=== PATIENT | female | born 1980 | race Caucasian/White ===

== ENCOUNTER 2017-01-25 04:47 | Emergency (ER) | payer OTHER ==
[~2017-01-25] VITALS: Ht 160 cm; Wt 52.3 kg
[2017-01-25 04:55] VITALS: BP 121/81; PULSE 97; RESP 16; O2SAT 100
--- NOTE | 2017-01-25 04:56 | ED.REPORT ---
HPI-General Illness Date of Service Jan 25, 2017 ED Provider: Hardik Ureña MD Patient is a 36 year old female with a history of PVC's and anxiety who presents to the ED complaining of palpitations at 2100. About an hour later she began shaking and states that she felt like her "electrolytes were off". Associated symptoms include being extremely thirsty, urinary frequency and fatigue. She states that her natural path recently "diagnosed her with [place] virus but she was told that she does not have mononucleosis as she is afebrile and asymptomatic". She denies leg swelling, shortness of breath, history of cardiac arrhythmia, nausea, vomiting, diarrhea or any other acute symptoms. The patient had a previous visit in 2015 with similar presentation. Nursing Notes Stated Complaint: THIRSTY,SHAKING,IRREGULAR HEARTBEAT Chief Complaint: General Complaint Nursing Notes Reviewed: Yes Allergies: Coded Allergies: gluten (Verified Allergy, Unknown, 01/25/17) Scheduled Sulfamethoxazole/Trimeth 800-160 mg (Bactrim DS) 1 Each Tablet 1 TABLET PO BID General Time Seen by MD: 04:56 Chief Complaint Other (heart palpitations) Hx Obtained From: Patient Arrived By: Walk-in Sudden in Onset?: Yes Similar Sx Previous: Yes Past Medical History Past Medical History Anxiety PVCs Past Surgical History Colonoscopy Smoking History Never Smoker Social History Alcohol Use: "Social" Drug Use: Denies drug use Other Social History: Good social support, Ambulatory Status Independent Review of Systems +extreme thirst Full Review of Systems Constitutional: Reports: Fatigue, Denies: Chills, Fever Respiratory: Denies: Non-productive cough, Shortness of breath Cardiovascular: Reports: Palpitations GI: Denies: Diarrhea, Nausea, Vomiting Female: Reports: Urinary frequency Musculoskeletal: Denies: Extremity pain, Extremity swelling Skin: Denies Itching, Denies Rash Neurologic: Reports: Shaking Complete sys rev & neg: except as marked. Physical Exam Vital Signs Vital Signs Date Time Temp Pulse Resp B/P Pulse Ox O2 Delivery O2 Flow Rate FiO2 01/25/17 06:36 37.0 93 18 115/72 97 Room Air 01/25/17 06:35 37.0 93 16 115/72 97 Room Air 01/25/17 04:55 36.9 97 16 121/81 100 Room Air Initial VS: Reviewed General/Constitutional: Awake, Alert, No acute distress Head / Eyes: Atraumatic, Normocephalic, PERRL, EOMI ENT: Atraumatic, Airway patent Mouth: Positive: Mucous membranes dry Respiratory / Chest: Atraumatic, Breath sounds NL, Breath sounds = bilat, No respiratory distress Cardiovascular: Regular rhythm, Heart sounds NL, No gallop, No murmurs, No rubs Abdomen: Atraumatic, Soft, Non-tender, No distention Upper Extremities Upper Extremity / MS: Atraumatic, Full range of motion Lower Extremity / Pelvis / MS: Atraumatic, Non-tender, No edema Skin: Atraumatic, Color NL, No rash, Warm, Dry Neurologic: Oriented X3, Speech NL Psychiatric: Affect NL, Mood NL Interpretation & Diagnostics Lab Results Interpretation Result Diagram: 01/25/17 0525 01/25/17 0525 Test 01/25/17 05:14 01/25/17 05:25 Urine Color Yellow (YELLOW) Urine Appearance Hazy (CLEAR,HAZY) Urine pH 5.5 (5.0-8.0) Urine Specific [place] 1.015 (1.003-1.035) Urine Protein Negativemg/dL (NEG,TRACE) Urine Glucose (UA) Negativemg/dL (NEGATIVE) Urine Ketones Negativemg/dL (NEGATIVE) Urine Occult Blood Moderate (NEGATIVE) Urine Nitrite Negative (NEGATIVE) Urine Bilirubin Negative (NEGATIVE) Urine Urobilinogen Normalmg/dL (NORMAL) Urine Leukocyte Esterase Small (NEGATIVE) Urine RBC 0-2/hpf (0-2) Urine WBC 6-10/hpf (0-5) Urine Epithelial Cells Moderate/hpf (NONE-MOD) Urine Crystals None seen (NONE SEEN) Urine Bacteria Moderate/hpf (NONE-FEW) Urine Hyaline Casts None/lpf (NONE) Urine Granular Casts None seen (NONE SEEN) Urine Waxy Casts None seen (NONE SEEN) Urine Red Blood Cell Casts None seen (NONE SEEN) Urine White Blood Cell Casts None seen (NONE SEEN) Urine Mucus Present (None Seen) Urine Trichomonas None seen (NONE SEEN) Urine Yeast None (NONE SEEN) Urinalysis Comment None Urine Culture Reflexed Indicated White Blood Count 8.5th/mm3 (3.8-10.1) Red Blood Count 4.52mil/mm3 (3.90-5.20) Hemoglobin 13.4g/dL (12.0-15.6) Hematocrit 39.5% (35.0-46.0) Mean Corpuscular Volume 87.4fL (81-100) Mean Corpuscular Hemoglobin 29.6pg (27.0-35.0) Mean Corpuscular Hemoglobin Concent 33.9% (32.0-37.0) Red Cell Distribution Width 13.0% (12.3-15.4) Platelet Count 334bil/L (150-400) Neutrophils (%) (Auto) 75.7% (40-74) Lymphocytes (%) (Auto) 18.2% (14-46) Monocytes (%) (Auto) 5.3% (4-12) Eosinophils (%) (Auto) 0.4% (0-5) Basophils (%) (Auto) 0.2% (0-3) Sodium Level 138mEq/L (134-144) Potassium Level 3.7mEq/L (3.5-5.2) Chloride Level 101mEq/L (97-108) Carbon Dioxide Level 21mmol/L (18-29) Blood Urea Nitrogen 12mg/dL (6-20) Creatinine 0.74mg/dL (0.57-1.00) Estimat Glomerular Filtration Rate 126mL/min (>59) Glucose Level 105mg/dL (60-99) Calcium Level 9.4mg/dL (8.5-10.1) Magnesium Level 2.1mg/dL (1.6-2.6) Total Bilirubin 0.6mg/dL (0.0-1.2) Aspartate Amino Transf (AST/SGOT) 14U/L (0-50) Alanine Aminotransferase (ALT/SGPT) 12U/L (0-32) Alkaline Phosphatase 35U/L (25-150) Total Protein 7.7g/dL (6.4-8.4) Albumin 4.7g/dL (3.4-5.0) Thyroid Stimulating Hormone (TSH) 3.140uIU/mL (0.450-4.500) Hold Love Top Tube Received (Received) ECG Interpretation ECG Interpretation: sinus tachycardia, rate 101 normal axis normal intervals no ST segment changes no T wave abnormalities unchanged from prior EKG from 2014 Time: 05:11 Interpreted by: ED physician Re-Eval/Medical Decision Med Decision/Clinical Course Patient is a 36 year old female with a history of PVC's and anxiety who presents to the ED complaining of palpitations at 2100. About an hour later she began shaking and states that she felt like her "electrolytes were off". Associated symptoms include being extremely thirsty, urinary frequency, fatigue and nausea. She states that her natural path recently "diagnosed her with [place] virus but she was told that she does not have mononucleosis as she is afebrile and asymptomatic". She denies leg swelling, shortness of breath, history of cardiac arrhythmia, nausea, vomiting, diarrhea or any other acute symptoms. The patient had a previous visit in 2015 with similar presentation. Here in the emergency department the patient is borderline tachycardic though otherwise afebrile and hemodynamically stable. She has dry mucous membranes and appears somewhat dehydrated. The patient was treated with 1 L of normal saline and urged to drink fluids as well. Laboratory studies notable as below: Urine dip was positive for leukocytes but overall unconvincing for UTI. U preg: negative Urinalysis: negative nitrites, small leukocyte esterase, moderate bacteria, moderate epithelial cells, moderate blood. CBC unremarkable This time, I see no evidence of significant electrolyte abnormality. EKG was obtained and demonstrated sinus rhythm. She was noted to be borderline tachycardic though this improved after IV fluids. In the past she is also noted to have a baseline heart rate is borderline tachycardic. Overall presentation unconvincing for pulmonary embolism as she is without shortness of breath or pleuritic chest pain/ulnar embolism risk factors. No evidence of conduction abnormality or arrhythmia on EKG. She does clearly have a large component of anxiety and I suspect that this plays into her overall presentation. She appeared dehydrated and had improvement with IV fluids. While she reports that her medical doctor nuclear medicine recently diagnosed her with [place] virus I see no evidence that this is germane to her complaint today. She is incidentally found to have urinary tract infection with overall constellation of symptoms not entirely classic of UTI. That being said I have opted to treat her with 5 days of Bactrim. I see no evidence of systemic infection or pyelonephritis. At this time, I feel that the patient is appropriate for discharge. She has been advised to orally hydrate and follow up with her regular physician. Prior to discharge follow-up and return precautions were reviewed in detail with the patient who verbalized understanding and agreement with the plan. The patient was discharged in stable condition. TSH is pending at this time and she will follow up these results on an outpatient basis. Time of Eval: 05:52 Re-Evaluation/Progress Note: Discussed results and plan for discharge pending CMP. Patient understands and agrees to plan. All questions were addressed. Counseled Regarding: Diagnosis, Lab results, Need for follow-up, When/why to return to ED Discharge & Departure Primary Impression: Heart palpitations Additional Impressions: Anxiety Dehydration Urinary tract infection Urinary tract infection type: site unspecified Hematuria presence: with hematuria Qualified Code: N39.0 - Urinary tract infection, site not specified Disposition: Home Discharge Condition All VS Reviewed: Yes Condition: Stable Patient Instructions: Anxiety (ED), Heart Palpitations (ED) Additional Instructions: Thank you for seeking care at the emergency department. You were seen today for irregular heartbeat. You were treated for dehydration. Your labs showed no evidence of significant electrolyte abnormalities but your urinalysis showed evidence of a UTI. Be sure to drink plenty of fluids. Take the antibiotic as prescribed. Follow up with your primary care physician regarding your thyroid results. You should return to the Emergency Department if you develop fevers, shortness of breath, vomiting or any other concerning symptoms. Thank you for letting us partake in your care today. Referrals: Tamara Rivas ND, LAc (PCP) Elissa Attestation Portions of this note were transcribed by Maegan Will. I, Dr. Ureña personally performed the history, physical exam and medical decision-making; I reviewed and confirmed the accuracy of the information in the transcribed note. Signed by: Elissa Marcos, 01/25/17 copies to: Tamara Rivas ND, LAc [place], Beck O MD Jan 25, 2017 04:56 Katia Will Jan 25, 2017 05:09
[2017-01-25] MEDS ORDERED: 0.9% Sodium Chloride 1,000 ML IV ONE (04:57)
[2017-01-25 05:27] LABS: APPEARANCE,URINE HAZY (CLEAR,HAZY); COLOR,URINE YELLOW (YELLOW); OCCULT BLOOD,URINE MODERATE (NEGATIVE); PH,URINE 5.5 (5.0-8.0); UROBILINOGEN,URINE NORMAL (NORMAL)
[2017-01-25] MEDS ORDERED: SULF1TAB7 PO (05:31)
[2017-01-25 05:35] LABS: BASOPHILS % (AUTO) 0.2 % (0-3); EOSINOPHILS % (AUTO) 0.4 % (0-5); MONOCYTES % (AUTO) 5.3 % (4-12); Mean Corpuscular Hemoglobin 29.6 pg (27.0-35.0); Mean Corpuscular Volume 87.4 fL (81-100); NEUTROPHILS % (AUTO) 75.7 % (40-74); Platelet Count 334 bil/L (150-400)
[2017-01-25 06:12] LABS: Magnesium 2.1 mg/dL (1.6-2.6)
[2017-01-25 06:35] VITALS: BP 115/72; PULSE 93; RESP 16; O2SAT 97
[2017-01-25 06:36] VITALS: BP 115/72; PULSE 93; RESP 18; O2SAT 97
== END 2017-01-25 06:36 | disposition home or self-care (01) ==
LOC: SED 04:47
DX: R00.2 Palpitations (principal); F41.9 Anxiety disorder, unspecified; E86.0 Dehydration; N39.0 Urinary tract infection, site not specified; Z86.79 Personal history of other diseases of the circulatory system; Z88.8 Allergy status to other drugs, medicaments and biological substances
CPT/HCPCS: 36415; 80053; 81000; 81025; 83735; 84443; 85025; 87086; 87088; 93005; 99284; J7030